=== PATIENT | female | born 2000 | race Caucasian/White ===

== ENCOUNTER → 2024-12-29 07:16 | Outpatient (REF) | payer OTHER, SELFPAY | LOC: HWRCS 07:16 | PROVIDERS: ATTENDING PHYSICIAN Internal Medicine; FAMILY PHYSICIAN Student in an Organized Health Care Education/Training Program | DX: Q23.81 Bicuspid aortic valve (principal); I35.1 Nonrheumatic aortic (valve) insufficiency | CPT/HCPCS: 93306 ==